=== PATIENT | female | born 1970 | race African-American/Black ===

== ENCOUNTER 2020-06-01 02:40 | Inpatient (IN) | payer MEDICAID ==
[~2020-06-01] VITALS: Ht 172.7 cm; Wt 107.5 kg
[2020-06-01] MEDS ORDERED: MORPHINE SULFATE 4 MG/ML CPJ (NOT FOR IM USE) IV STA (02:53)
[2020-06-01] MEDS ORDERED: ONDANSETRON HCL 4MG/2ML INJ IV STA (02:53)
[2020-06-01] MEDS ORDERED: SODIUM CHLORIDE 0.9% 1,000 ML IV ONE (03:00)
[2020-06-01 03:25] LABS: HEMATOCRIT. 41.6 % (36.0-48.0); HEMOGLOBIN. 13.8 g/dL (12.0-16.0); MEAN CORPUSCULAR HEMOGLOBIN 30.4 pg (28.0-32.0); MEAN CORPUSCULAR VOLUME 91.3 fL (81.0-99.0); MEAN PLATELET VOLUME 9.6 fl (7.4-10.4); PLATELET 220 x1000/uL (130-400); RED BLOOD CELL COUNT 4.55 mill/uL (4.2-5.4); RED CELL DISTRIBUTION WIDTH 15.6 % (11.6-14.6)
[2020-06-01 03:31] LABS: CHLORIDE 104 mEq/L (98-107)
[2020-06-01 03:35] LABS: ETHANOL BLOOD < 10 mg/dL
[2020-06-01 03:42] LABS: HCG SCREEN NEGATIVE
[2020-06-01 03:45] LABS: INR 1.1
[2020-06-01] MEDS ORDERED: METRONIDAZOLE 500 MG PREMIX 100 ML IV ONE (04:30)
[2020-06-01] MEDS ORDERED: SODIUM CHLORIDE 0.9% 1000ML BAG (SEPSIS BOLUS) IV ONE (04:30)
[2020-06-01] MEDS ORDERED: LEVOFLOXACIN 500MG PREMIX 100 ML IV ONE (04:30)
[2020-06-01 05:06] LABS: PLATELET ESTIMATE NORMAL
[2020-06-01 08:00] VITALS: BP 147/92
[2020-06-01 09:10] VITALS: BP 147/92
[2020-06-01] MEDS ORDERED: PIPERACILLIN/TAZ 3.375G PREMIX 50 ML IV SCH (09:15)
[2020-06-01] MEDS ORDERED: LORAZEPAM 0.5MG TABLET PO PRN (09:15)
[2020-06-01] MEDS ORDERED: MELO-104 MT ×2 (11:10→11:56)
[2020-06-01] MEDS ORDERED: HYDR12.54 MT (11:11)
[2020-06-01] MEDS ORDERED: POTA8CAP20 MT (11:15)
[2020-06-01] MEDS ORDERED: ALBU6.7H9 INH (11:15)
[2020-06-01] MEDS ORDERED: FURO-152 MT (11:15)
[2020-06-01] MEDS ORDERED: ATEN1POW2 MC (11:15)
[2020-06-01] MEDS ORDERED: EMPA10TA MT (11:15)
[2020-06-01] MEDS ORDERED: CLON0.1T MT (11:15)
[2020-06-01] MEDS ORDERED: SUCR1TAB30 MT (11:25)
[2020-06-01] MEDS ORDERED: ATEN50TA PO (11:43)
[2020-06-01] MEDS ORDERED: HYDR200T80 PO (11:48)
[2020-06-01] MEDS ORDERED: ERTU5TAB PO (11:48)
[2020-06-01] MEDS ORDERED: POTA-9 MT (11:54)
[2020-06-01 12:00] VITALS: BP 152/90
[2020-06-01] MEDS ORDERED: KCL 20MEQ/100ML PREMIX 100 ML IV NR (12:00)
[2020-06-01] MEDS: AMLODIPINE 5MG TABLET PO SCH (12:10)
[2020-06-01] MEDS: HYDROCODONE/ACETAMINOPHEN 5/325MG TABLET PO PRN (13:30)
[2020-06-01 16:00] VITALS: BP 162/96
[2020-06-01] MEDS: ACETAMINOPHEN 325MG TABLET PO PRN (16:55)
[2020-06-01 20:00] VITALS: BP 162/87
[2020-06-01] MEDS: HYDROMORPHONE HCL/PF 2MG/ML CPJ IV PRN (20:25)
[2020-06-01 23:37] VITALS: BP 137/79
[2020-06-02 04:00] VITALS: BP 142/89
[2020-06-02] MEDS: HYDROMORPHONE HCL/PF 2MG/ML CPJ IV PRN (04:50)
[2020-06-02 08:00] VITALS: BP 138/81
[2020-06-02 08:18] LABS: HEMATOCRIT. 38.3 % (36.0-48.0); HEMOGLOBIN. 12.4 g/dL (12.0-16.0); MEAN CORPUSCULAR HEMOGLOBIN 29.9 pg (28.0-32.0); MEAN CORPUSCULAR VOLUME 92.2 fL (81.0-99.0); MEAN PLATELET VOLUME 10.2 fl (7.4-10.4); PLATELET 198 x1000/uL (130-400); RED BLOOD CELL COUNT 4.16 mill/uL (4.2-5.4); RED CELL DISTRIBUTION WIDTH 15.7 % (11.6-14.6)
[2020-06-02 08:24] LABS: CHLORIDE 104 mEq/L (98-107)
[2020-06-02] MEDS ORDERED: LEVOFLOXACIN 750MG PREMIX 150 ML IV SCH (09:00)
[2020-06-02] MEDS: DIATR MEGLU/DIATRIZOATE SOLN 30ML PO SCH ×2 (09:24→11:31)
[2020-06-02] MEDS: AMLODIPINE 5MG TABLET PO SCH (09:24)
[2020-06-02 12:00] VITALS: BP 141/90
[2020-06-02] MEDS: ONDANSETRON HCL 4MG/2ML INJ IV PRN (12:52)
[2020-06-02] MEDS ORDERED: IOHEXOL-300 100 ML BOTTLE ONE (13:35)
[2020-06-02] MEDS ORDERED: ATENOLOL 50 MG TABLET PO SCH (13:45)
[2020-06-02] MEDS: HYDROCODONE/ACETAMINOPHEN 5/325MG TABLET PO PRN (13:46)
[2020-06-02] MEDS ORDERED: SODIUM CHLORIDE 0.9% 1,000 ML IV SCH (14:00)
[2020-06-02] MEDS: SODIUM CHLORIDE 0.9% 1,000 ML IV SCH ×2 (14:14→23:45)
[2020-06-02 14:34] LABS: PLATELET ESTIMATE NORMAL
[2020-06-02] MEDS ORDERED: KCL 20MEQ/100ML PREMIX 100 ML IV SCH (15:00)
[2020-06-02 16:00] VITALS: BP 141/94
[2020-06-02] MEDS: METRONIDAZOLE 500 MG PREMIX 100 ML IV SCH ×2 (16:15→22:00)
[2020-06-02] MEDS: HYDROXYCHLOROQUINE SULFATE 200MG TABLET PO SCH (16:19)
[2020-06-02] MEDS ORDERED: LIDOCAINE HCL 1% 20ML VIAL (Pyxis) INJ ONE (18:01)
[2020-06-02] MEDS ORDERED: BUPIVACAINE HCL/PF 0.5% (5MG/ML) 10ML ONE (18:03)
[2020-06-02] MEDS ORDERED: BACITRACIN 50,000 UNITS/VIAL ONE (18:04)
[2020-06-02] MEDS ORDERED: ROCURONIUM BROMIDE 10MG/ML VIAL 5ML IV ONE (18:26)
[2020-06-02] MEDS ORDERED: PROPOFOL 200MG/20ML VIAL IV ONE (18:26)
[2020-06-02] MEDS ORDERED: DEXAMETHASONE 4MG/ML 1ML VIAL ONE (18:27)
[2020-06-02] MEDS ORDERED: METOPROLOL TARTRATE 5MG/5ML VIAL IV ONE (18:41)
[2020-06-02] MEDS ORDERED: HYDROMORPHONE HCL/PF 2MG/ML (OR) ONE ×2 (18:45→22:25)
[2020-06-02] MEDS ORDERED: KCL 20MEQ/100ML PREMIX 100 ML IV ONE (18:48)
[2020-06-02] MEDS ORDERED: POTASSIUM CHLORIDE 40MEQ/20ML INJ IV ONE (18:51)
[2020-06-02] MEDS ORDERED: MAGNESIUM SULFATE 5GM/10ML VIAL IV ONE (18:51)
[2020-06-02] MEDS ORDERED: LABETALOL 5MG/ML SYR 20 MG/4 ML SYRINGE IV PRN (19:45)
[2020-06-02] MEDS ORDERED: HYDROMORPHONE HCL/PF 2MG/ML CPJ IV PRN (19:45)
[2020-06-02] MEDS ORDERED: ONDANSETRON HCL 4MG/2ML INJ IV PRN (19:45)
[2020-06-02] MEDS ORDERED: MEPERIDINE HCL/PF 25MG/ML CPJ IV PRN (19:45)
[2020-06-02] MEDS ORDERED: ALBUMIN HUMAN 12.5GM/50ML (25%) IV ONE (20:56)
[2020-06-02] MEDS ORDERED: MIDAZOLAM HCL 2 MG/2 ML VIAL ONE (22:25)
[2020-06-02] MEDS ORDERED: SKIN ADHESIVE 0.7 GM EA TOP ONE (22:56)
[2020-06-03] VITALS (42 sets, daily range): BP systolic 99–139; BP diastolic 63–88
[2020-06-03] MEDS: PROPOFOL 10MG/ML 100ML 100 ML IV PRN ×6 (01:01→23:30)
[2020-06-03 05:36] LABS: CHLORIDE 111 mEq/L (98-107)
[2020-06-03] MEDS: METRONIDAZOLE 500 MG PREMIX 100 ML IV SCH ×3 (05:51→21:32)
[2020-06-03] MEDS: IPRATROPIUM/ALBUTEROL 0.5-3(2.5)MG/3ML NEB HHN PRN ×2 (07:49→15:32)
[2020-06-03] MEDS: AMLODIPINE 5MG TABLET PO SCH (08:16)
[2020-06-03] MEDS: HYDROXYCHLOROQUINE SULFATE 200MG TABLET PO SCH ×2 (08:17→16:33)
[2020-06-03] MEDS: LEVOFLOXACIN 750MG PREMIX 150 ML IV SCH (08:40)
[2020-06-03 09:42] LABS: BG BASE EXCESS -8.6 mmol/L (-2.0-2.0); BG CARBOXYHEMOGLOBIN 0.2 % (0.5-1.5); BG DEOXYHEMOGLOBIN 1.5 % (0.0-5.0); BG FRACTION INSPIRED OXYGEN 70; BG HCO3 ACT 17.9 mmol/L (22.0-26.0); BG METHEMOGLOBIN 0.4 % (0.0-1.5); BG OXYGEN SATURATION 98.5 % (92.0-98.5); BG OXYHEMOGLOBIN 97.9 % (94.0-97.0); BG PCO2 40.6 mmHg (35.0-45.0); BG PH 7.263 (7.350-7.450); BG PO2 141.6 mmHg (75.0-100.0); BG SAMPLE SITE RIGHT RADIAL; BG TOTAL HEMOGLOBIN 12.6 g/dL (12.0-18.0); BG VENT MODE VENT - AC
[2020-06-03] MEDS ORDERED: SODIUM BICARBONATE 8.4% 1 MEQ/ML 50ML SYR IV NR ×2 (10:00→15:15)
[2020-06-03] MEDS: SODIUM CHLORIDE 0.9% 1,000 ML IV SCH (10:09)
[2020-06-03] MEDS: PANTOPRAZOLE SODIUM 40 MG/VIAL IV SCH (10:17)
[2020-06-03] MEDS: HYDROMORPHONE HCL/PF 2MG/ML CPJ IV PRN ×2 (10:18→15:44)
[2020-06-03] MEDS ORDERED: HYDROMORPHONE HCL/PF 2MG/ML CPJ IV PRN (10:30)
[2020-06-03 12:04] LABS: HEMATOCRIT. 36.2 % (36.0-48.0); HEMOGLOBIN. 11.6 g/dL (12.0-16.0); MEAN CORPUSCULAR HEMOGLOBIN 29.6 pg (28.0-32.0); MEAN CORPUSCULAR VOLUME 92.3 fL (81.0-99.0); MEAN PLATELET VOLUME 9.9 fl (7.4-10.4); PLATELET 214 x1000/uL (130-400); RED BLOOD CELL COUNT 3.92 mill/uL (4.2-5.4)
[2020-06-03 13:05] LABS: PHOSPHORUS 5.1 mg/dL (2.5-4.9)
[2020-06-03 13:29] LABS: PLATELET ESTIMATE NORMAL
[2020-06-03] MEDS ORDERED: SODIUM CHLORIDE 0.9% 1,000 ML IV SCH (14:00)
[2020-06-03 14:06] LABS: BG BASE EXCESS -6.7 mmol/L (-2.0-2.0); BG CARBOXYHEMOGLOBIN 0.2 % (0.5-1.5); BG DEOXYHEMOGLOBIN 1.4 % (0.0-5.0); BG FRACTION INSPIRED OXYGEN 60; BG HCO3 ACT 19.1 mmol/L (22.0-26.0); BG METHEMOGLOBIN 0.3 % (0.0-1.5); BG OXYGEN SATURATION 98.6 % (92.0-98.5); BG OXYHEMOGLOBIN 98.1 % (94.0-97.0); BG PCO2 39.2 mmHg (35.0-45.0); BG PH 7.305 (7.350-7.450); BG PO2 137.5 mmHg (75.0-100.0); BG SAMPLE SITE RIGHT RADIAL; BG TOTAL HEMOGLOBIN 12.5 g/dL (12.0-18.0); BG VENT MODE VENT - AC
[2020-06-03 14:33] LABS: CLARITY URINE CLOUDY (CLEAR); COLOR URINE DARK YELLOW (YELLOW); KETONES URINE 2+ (NEGATIVE); LEUKOCYTE ESTERASE URINE TRACE (NEGATIVE); NITRITE URINE NEGATIVE (NEGATIVE); OCCULT BLOOD URINE 2+ (NEGATIVE); PH URINE 5.5 (4.5-8.0); PROTEIN URINE 1+ (NEGATIVE); SPECIFIC GRAVITY URINE 1.031 (1.005-1.030)
[2020-06-03] MEDS ORDERED: DEXTROSE 50% WATER 50ML SYRINGE IV PRN (15:45)
[2020-06-03] MEDS ORDERED: [UNRECOGNIZED DRUG - NUTRITION] XX SCH (15:45)
[2020-06-03] MEDS: DEXT 5%/0.45% NACL 1000ML 1,000 ML IV SCH ×2 (16:33→23:12)
[2020-06-03] MEDS: INSULIN LISPRO 100 UNITS/ML SUBCUT SCH ×2 (17:09→23:13)
[2020-06-03] MEDS: BLOOD SUGAR DIAGNOSTIC STRIP TEST SCH ×2 (17:09→23:12)
[2020-06-03] MEDS ORDERED: BLOOD SUGAR DIAGNOSTIC STRIP TEST SCH (17:50)
[2020-06-03] MEDS ORDERED: INSULIN LISPRO 100 UNITS/ML SUBCUT SCH (18:20)
[2020-06-04] VITALS (48 sets, daily range): BP systolic 114–163; BP diastolic 66–96
[2020-06-04] MEDS: PROPOFOL 10MG/ML 100ML 100 ML IV PRN ×2 (04:21→07:25)
[2020-06-04] MEDS: HYDROMORPHONE HCL/PF 2MG/ML CPJ IV PRN ×4 (04:25→22:37)
[2020-06-04] MEDS: BLOOD SUGAR DIAGNOSTIC STRIP TEST SCH ×3 (05:14→18:51)
[2020-06-04] MEDS: INSULIN LISPRO 100 UNITS/ML SUBCUT SCH ×3 (05:14→18:00)
[2020-06-04] MEDS: METRONIDAZOLE 500 MG PREMIX 100 ML IV SCH ×3 (05:14→21:06)
[2020-06-04 05:36] LABS: CHLORIDE 111 mEq/L (98-107)
[2020-06-04 05:37] LABS: HEMATOCRIT. 32.1 % (36.0-48.0); HEMOGLOBIN. 10.6 g/dL (12.0-16.0); MEAN CORPUSCULAR HEMOGLOBIN 30.2 pg (28.0-32.0); MEAN CORPUSCULAR VOLUME 91.2 fL (81.0-99.0); MEAN PLATELET VOLUME 9.8 fl (7.4-10.4); PLATELET 192 x1000/uL (130-400); RED BLOOD CELL COUNT 3.52 mill/uL (4.2-5.4); RED CELL DISTRIBUTION WIDTH 16.1 % (11.6-14.6)
[2020-06-04] MEDS: DEXT 5%/0.45% NACL 1000ML 1,000 ML IV SCH ×2 (07:24→18:00)
[2020-06-04] MEDS: AMLODIPINE 5MG TABLET PO SCH (08:39)
[2020-06-04] MEDS: HYDROXYCHLOROQUINE SULFATE 200MG TABLET PO SCH ×2 (08:39→17:00)
[2020-06-04] MEDS: PANTOPRAZOLE SODIUM 40 MG/VIAL IV SCH (08:41)
[2020-06-04] MEDS: LEVOFLOXACIN 750MG PREMIX 150 ML IV SCH (08:41)
[2020-06-04] MEDS ORDERED: LORAZEPAM 2MG/ML CPJ IV NR ×2 (09:00)
[2020-06-04 09:14] LABS: BG BASE EXCESS 1.9 mmol/L (-2.0-2.0); BG CARBOXYHEMOGLOBIN 0.1 % (0.5-1.5); BG DEOXYHEMOGLOBIN 1.7 % (0.0-5.0); BG FRACTION INSPIRED OXYGEN 35; BG HCO3 ACT 25.7 mmol/L (22.0-26.0); BG METHEMOGLOBIN 0.3 % (0.0-1.5); BG OXYGEN SATURATION 98.3 % (92.0-98.5); BG OXYHEMOGLOBIN 97.9 % (94.0-97.0); BG PCO2 37.4 mmHg (35.0-45.0); BG PH 7.455 (7.350-7.450); BG PO2 122.2 mmHg (75.0-100.0); BG SAMPLE SITE RIGHT RADIAL; BG TOTAL HEMOGLOBIN 11.1 g/dL (12.0-18.0); BG VENT MODE VENT - AC
[2020-06-04 10:38] LABS: BG BASE EXCESS 1.2 mmol/L (-2.0-2.0); BG CARBOXYHEMOGLOBIN 0.1 % (0.5-1.5); BG DEOXYHEMOGLOBIN 4.3 % (0.0-5.0); BG FRACTION INSPIRED OXYGEN 35; BG HCO3 ACT 26.6 mmol/L (22.0-26.0); BG METHEMOGLOBIN 0.2 % (0.0-1.5); BG OXYGEN SATURATION 95.7 % (92.0-98.5); BG OXYHEMOGLOBIN 95.4 % (94.0-97.0); BG PCO2 45.5 mmHg (35.0-45.0); BG PH 7.385 (7.350-7.450); BG PO2 81.7 mmHg (75.0-100.0); BG SAMPLE SITE RIGHT RADIAL; BG TOTAL HEMOGLOBIN 11.3 g/dL (12.0-18.0); BG VENT MODE VENT - CPAP
[2020-06-04 11:12] LABS: NUCLEATED RED BLOOD CELLS 1 /100 WBC; PLATELET ESTIMATE NORMAL
[2020-06-04] MEDS: IPRATROPIUM/ALBUTEROL 0.5-3(2.5)MG/3ML NEB HHN PRN (11:13)
[2020-06-04] MEDS ORDERED: IPRATROPIUM/ALBUTEROL 0.5-3(2.5)MG/3ML NEB HHN SCH (13:30)
[2020-06-04] MEDS ORDERED: ACETYLCYSTEINE 200MG/ML 20% VIAL 4ML INH SCH ×2 (14:00→22:00)
[2020-06-04] MEDS ORDERED: DEXT 5%/0.45% NACL 1000ML 1,000 ML IV SCH (15:51)
[2020-06-04] MEDS: ONDANSETRON HCL 4MG/2ML INJ IV PRN ×2 (16:42→22:38)
[2020-06-04] MEDS: TOTAL PARENTERAL NUTRITION 1,400 ML IV SCH (18:00)
[2020-06-04] MEDS: IPRATROPIUM/ALBUTEROL 0.5-3(2.5)MG/3ML NEB HHN SCH ×2 (19:54→23:56)
[2020-06-04] MEDS: FAT EMULSIONS 500 ML IV SCH (21:04)
[2020-06-04] MEDS: ENOXAPARIN 30MG/0.3ML SYR SUBCUT SCH (21:05)
[2020-06-05] VITALS (23 sets, daily range): BP systolic 131–168; BP diastolic 81–104
[2020-06-05] MEDS: BLOOD SUGAR DIAGNOSTIC STRIP TEST SCH ×4 (00:13→17:11)
[2020-06-05] MEDS: HYDROMORPHONE HCL/PF 2MG/ML CPJ IV PRN ×6 (02:34→23:30)
[2020-06-05] MEDS: DILTIAZEM HCL 5MG/ML 5ML VIAL IV PRN ×3 (03:39→17:46)
[2020-06-05] MEDS: METRONIDAZOLE 500 MG PREMIX 100 ML IV SCH ×3 (05:16→21:48)
[2020-06-05] MEDS: DEXT 5%/0.45% NACL 1000ML 1,000 ML IV SCH ×2 (05:16→15:54)
[2020-06-05 05:33] LABS: HEMATOCRIT. 32.4 % (36.0-48.0); HEMOGLOBIN. 10.9 g/dL (12.0-16.0); MEAN CORPUSCULAR HEMOGLOBIN 30.6 pg (28.0-32.0); MEAN CORPUSCULAR VOLUME 91.3 fL (81.0-99.0); MEAN PLATELET VOLUME 9.9 fl (7.4-10.4); PLATELET 208 x1000/uL (130-400); RED BLOOD CELL COUNT 3.55 mill/uL (4.2-5.4); RED CELL DISTRIBUTION WIDTH 16.3 % (11.6-14.6)
[2020-06-05 05:56] LABS: CHLORIDE 108 mEq/L (98-107)
[2020-06-05] MEDS: INSULIN LISPRO 100 UNITS/ML SUBCUT SCH ×4 (06:00→17:11)
[2020-06-05 07:09] LABS: PLATELET ESTIMATE NORMAL
[2020-06-05] MEDS: IPRATROPIUM/ALBUTEROL 0.5-3(2.5)MG/3ML NEB HHN SCH (08:43)
[2020-06-05] MEDS: AMLODIPINE 5MG TABLET PO SCH ×2 (09:00→09:31)
[2020-06-05] MEDS: HYDROXYCHLOROQUINE SULFATE 200MG TABLET PO SCH ×3 (09:00→16:39)
[2020-06-05] MEDS: LEVOFLOXACIN 750MG PREMIX 150 ML IV SCH (09:31)
[2020-06-05] MEDS: PANTOPRAZOLE SODIUM 40 MG/VIAL IV SCH (09:31)
[2020-06-05] MEDS: ENOXAPARIN 30MG/0.3ML SYR SUBCUT SCH ×2 (09:32→20:16)
[2020-06-05] MEDS ORDERED: POTASSIUM CHLORIDE INJ 40 MEQ in DEXT 5% WATER 250 ML IV NR (10:30)
[2020-06-05] MEDS: IPRATROPIUM BROMIDE (0.02%) 0.5MG/2.5ML NEB HHN SCH ×2 (14:13→20:14)
[2020-06-05] MEDS: TOTAL PARENTERAL NUTRITION 1,400 ML IV SCH (17:39)
[2020-06-05] MEDS: DILTIAZEM HCL 60MG TABLET PO SCH ×2 (17:44→23:57)
[2020-06-05] MEDS: GUAIFENESIN 600MG ER TABLET PO SCH (20:21)
[2020-06-05] MEDS ORDERED: TOTAL PARENTERAL NUTRITION 1,400 ML IV SCH (21:00)
[2020-06-05] MEDS: CLONIDINE 0.1MG TABLET PO PRN (22:07)
[2020-06-06] VITALS (10 sets, daily range): BP systolic 144–174; BP diastolic 85–111
[2020-06-06] MEDS: IPRATROPIUM BROMIDE (0.02%) 0.5MG/2.5ML NEB HHN SCH ×5 (01:34→21:55)
[2020-06-06] MEDS: HYDROMORPHONE HCL/PF 2MG/ML CPJ IV PRN ×8 (02:43→22:55)
[2020-06-06] MEDS: METRONIDAZOLE 500 MG PREMIX 100 ML IV SCH ×3 (05:50→23:50)
[2020-06-06] MEDS: DILTIAZEM HCL 60MG TABLET PO SCH (05:50)
[2020-06-06] MEDS: HYDRALAZINE HCL 25MG TABLET PO SCH ×3 (05:50→21:00)
[2020-06-06] MEDS: INSULIN LISPRO 100 UNITS/ML SUBCUT SCH ×4 (05:51→17:44)
[2020-06-06] MEDS: BLOOD SUGAR DIAGNOSTIC STRIP TEST SCH ×4 (05:51→17:39)
[2020-06-06 06:55] LABS: HEMATOCRIT. 34.1 % (36.0-48.0); HEMOGLOBIN. 11.2 g/dL (12.0-16.0); MEAN CORPUSCULAR HEMOGLOBIN 29.8 pg (28.0-32.0); MEAN CORPUSCULAR VOLUME 90.6 fL (81.0-99.0); PLATELET 229 x1000/uL (130-400); RED BLOOD CELL COUNT 3.76 mill/uL (4.2-5.4); RED CELL DISTRIBUTION WIDTH 15.8 % (11.6-14.6)
[2020-06-06 07:03] LABS: CHLORIDE 101 mEq/L (98-107)
[2020-06-06 07:13] LABS: PHOSPHORUS 2.6 mg/dL (2.5-4.9)
[2020-06-06] MEDS: HYDROXYCHLOROQUINE SULFATE 200MG TABLET PO SCH ×3 (09:00→17:39)
[2020-06-06] MEDS: GUAIFENESIN 600MG ER TABLET PO SCH ×2 (09:00→21:00)
[2020-06-06] MEDS: ENOXAPARIN 30MG/0.3ML SYR SUBCUT SCH ×3 (09:24→23:50)
[2020-06-06] MEDS: DEXT 5%/0.45% NACL 1000ML 1,000 ML IV SCH (09:27)
[2020-06-06] MEDS: FAMOTIDINE 20MG/2ML VIAL IV SCH ×2 (09:27→22:55)
[2020-06-06] MEDS: LEVOFLOXACIN 750MG PREMIX 150 ML IV SCH (10:14)
[2020-06-06] MEDS: DILTIAZEM HCL 90MG TABLET PO SCH ×3 (12:00→17:55)
[2020-06-06] MEDS: MORPHINE SULFATE 2 MG/ML CPJ (NOT FOR IM USE) IV PRN ×2 (12:02→17:54)
[2020-06-06] MEDS: ACETAMINOPHEN 325MG TABLET PO PRN (14:11)
[2020-06-06 15:53] LABS: HEMATOCRIT. 35.8 % (36.0-48.0); HEMOGLOBIN. 11.9 g/dL (12.0-16.0); MEAN CORPUSCULAR HEMOGLOBIN 30.6 pg (28.0-32.0); MEAN CORPUSCULAR VOLUME 91.8 fL (81.0-99.0); MEAN PLATELET VOLUME 9.8 fl (7.4-10.4); PLATELET 203 x1000/uL (130-400)
[2020-06-06 15:59] LABS: CHLORIDE 101 mEq/L (98-107)
[2020-06-06 17:21] LABS: PLATELET ESTIMATE NORMAL
[2020-06-06] MEDS ORDERED: BACITRACIN 50,000 UNITS/VIAL ONE (17:23)
[2020-06-06 17:28] LABS: PLATELET ESTIMATE NORMAL
[2020-06-06] MEDS ORDERED: FENTANYL CITRATE/PF 50MCG/ML 2ML VIAL ONE ×2 (18:14→19:59)
[2020-06-06] MEDS ORDERED: ROCURONIUM BROMIDE 10MG/ML VIAL 5ML IV ONE (18:15)
[2020-06-06] MEDS ORDERED: GLYCOPYRROLATE 0.2 MG/ML 2ML VIAL ONE (18:15)
[2020-06-06] MEDS ORDERED: NEOSTIGMINE METHYLSULFATE 1MG/ML 10 ML VIAL ONE (18:15)
[2020-06-06] MEDS ORDERED: MIDAZOLAM HCL 2 MG/2 ML VIAL ONE (18:15)
[2020-06-06] MEDS ORDERED: PROPOFOL 200MG/20ML VIAL IV ONE (18:15)
[2020-06-06] MEDS ORDERED: CLINDAMYCIN 900 MG PREMIX 50 ML IV ONE (18:16)
[2020-06-06] MEDS ORDERED: LIDOCAINE HCL 1% 20ML VIAL (Pyxis) INJ ONE (18:17)
[2020-06-06] MEDS ORDERED: DEXAMETHASONE 4MG/ML 1ML VIAL ONE (18:26)
[2020-06-06] MEDS ORDERED: ONDANSETRON HCL 4MG/2ML INJ ONE (18:26)
[2020-06-06] MEDS ORDERED: NALOXONE HCL 0.4 MG/ML 1ML VIAL ONE (20:12)
[2020-06-06] MEDS ORDERED: SODIUM CHLORIDE 0.9% 10ML VIAL ONE (20:12)
[2020-06-06] MEDS ORDERED: MEPERIDINE HCL/PF 25MG/ML CPJ IV PRN (20:15)
[2020-06-06] MEDS ORDERED: ONDANSETRON HCL 4MG/2ML INJ IV PRN (20:15)
[2020-06-06] MEDS ORDERED: METOCLOPRAMIDE HCL 10MG/2ML VIAL IV NR (20:15)
[2020-06-06] MEDS ORDERED: TOTAL PARENTERAL NUTRITION 1,400 ML IV SCH (21:00)
[2020-06-07] VITALS (14 sets, daily range): BP systolic 110–171; BP diastolic 73–103
[2020-06-07] MEDS: DEXT 5%/0.45% NACL 1000ML 1,000 ML IV SCH ×4 (00:56→21:45)
[2020-06-07] MEDS: DILTIAZEM HCL 90MG TABLET PO SCH ×4 (00:56→18:25)
[2020-06-07] MEDS: INSULIN LISPRO 100 UNITS/ML SUBCUT SCH ×4 (00:57→18:37)
[2020-06-07] MEDS: BLOOD SUGAR DIAGNOSTIC STRIP TEST SCH ×4 (00:59→18:26)
[2020-06-07] MEDS: HYDROMORPHONE HCL/PF 2MG/ML CPJ IV PRN ×4 (06:06→19:36)
[2020-06-07] MEDS: METRONIDAZOLE 500 MG PREMIX 100 ML IV SCH ×3 (06:15→22:05)
[2020-06-07] MEDS: MORPHINE SULFATE 2 MG/ML CPJ (NOT FOR IM USE) IV PRN ×4 (08:31→22:47)
[2020-06-07] MEDS: HYDRALAZINE HCL 25MG TABLET PO SCH ×2 (08:33→21:46)
[2020-06-07] MEDS: HYDROXYCHLOROQUINE SULFATE 200MG TABLET PO SCH ×2 (08:33→18:26)
[2020-06-07] MEDS: FAMOTIDINE 20MG/2ML VIAL IV SCH ×2 (08:33→21:46)
[2020-06-07] MEDS: GUAIFENESIN 600MG ER TABLET PO SCH ×3 (08:34→21:46)
[2020-06-07] MEDS: ENOXAPARIN 30MG/0.3ML SYR SUBCUT SCH ×2 (08:34→21:48)
[2020-06-07] MEDS: LEVOFLOXACIN 750MG PREMIX 150 ML IV SCH (09:45)
[2020-06-07 10:51] LABS: HEMATOCRIT 31.7 % (36.0-48.0); HEMOGLOBIN 10.6 g/dL (12.0-16.0); MEAN CORPUSCULAR VOLUME 89.9 fL (81.0-99.0); PLATELET 251 x1000/uL (130-400); RED BLOOD CELL COUNT 3.52 mill/uL (4.2-5.4); RED CELL DISTRIBUTION WIDTH 15.6 % (11.6-14.6)
[2020-06-07] MEDS: IPRATROPIUM BROMIDE (0.02%) 0.5MG/2.5ML NEB HHN SCH ×3 (10:54→20:00)
[2020-06-07 10:56] LABS: CHLORIDE 104 mEq/L (98-107)
[2020-06-07] MEDS ORDERED: [UNRECOGNIZED DRUG - NUTRITION] XX SCH (21:00)
[2020-06-07] MEDS ORDERED: TOTAL PARENTERAL NUTRITION 1,200 ML IV SCH (21:00)
[2020-06-07] MEDS: CLONIDINE 0.1MG TABLET PO PRN (22:42)
[2020-06-08] VITALS (13 sets, daily range): BP systolic 140–185; BP diastolic 82–105
[2020-06-08] MEDS: DILTIAZEM HCL 90MG TABLET PO SCH ×4 (00:43→18:15)
[2020-06-08] MEDS: BLOOD SUGAR DIAGNOSTIC STRIP TEST SCH ×4 (00:47→18:08)
[2020-06-08] MEDS: INSULIN LISPRO 100 UNITS/ML SUBCUT SCH ×4 (00:53→18:00)
[2020-06-08] MEDS: HYDROMORPHONE HCL/PF 2MG/ML CPJ IV PRN ×3 (02:04→11:07)
[2020-06-08] MEDS: IPRATROPIUM BROMIDE (0.02%) 0.5MG/2.5ML NEB HHN SCH ×4 (02:33→21:10)
[2020-06-08] MEDS: MORPHINE SULFATE 2 MG/ML CPJ (NOT FOR IM USE) IV PRN ×5 (04:45→23:53)
[2020-06-08] MEDS: METRONIDAZOLE 500 MG PREMIX 100 ML IV SCH ×3 (06:12→22:43)
[2020-06-08 07:24] LABS: CHLORIDE 101 mEq/L (98-107)
[2020-06-08 08:44] LABS: HEMATOCRIT. 28.5 % (36.0-48.0); HEMOGLOBIN. 9.4 g/dL (12.0-16.0); MEAN CORPUSCULAR HEMOGLOBIN 29.8 pg (28.0-32.0); MEAN CORPUSCULAR VOLUME 90.2 fL (81.0-99.0); MEAN PLATELET VOLUME 10.1 fl (7.4-10.4); PLATELET 297 x1000/uL (130-400); RED BLOOD CELL COUNT 3.16 mill/uL (4.2-5.4)
[2020-06-08] MEDS: DEXT 5%/0.45% NACL 1000ML 1,000 ML IV SCH ×2 (09:18→22:44)
[2020-06-08] MEDS: FAMOTIDINE 20MG/2ML VIAL IV SCH ×2 (09:18→21:31)
[2020-06-08] MEDS: HYDRALAZINE HCL 25MG TABLET PO SCH ×2 (09:19→21:24)
[2020-06-08] MEDS: GUAIFENESIN 600MG ER TABLET PO SCH ×2 (09:19→21:24)
[2020-06-08] MEDS: ENOXAPARIN 30MG/0.3ML SYR SUBCUT SCH ×2 (09:19→21:35)
[2020-06-08] MEDS: HYDROXYCHLOROQUINE SULFATE 200MG TABLET PO SCH ×2 (09:19→18:14)
[2020-06-08] MEDS: LEVOFLOXACIN 750MG PREMIX 150 ML IV SCH (09:20)
[2020-06-08] MEDS: ENALAPRIL 1.25MG/ML VIAL 1ML IV PRN ×2 (10:56→18:38)
[2020-06-08 14:12] LABS: PLATELET ESTIMATE NORMAL
[2020-06-08] MEDS: METOPROLOL TARTRATE 25MG TABLET PO SCH (21:24)
[2020-06-08] MEDS: FAT EMULSIONS 500 ML IV SCH (21:37)
[2020-06-08] MEDS: TOTAL PARENTERAL NUTRITION 1,500 ML IV SCH (21:42)
[2020-06-09] VITALS (12 sets, daily range): BP systolic 114–166; BP diastolic 60–97
[2020-06-09] MEDS: DILTIAZEM HCL 90MG TABLET PO SCH ×4 (01:02→17:02)
[2020-06-09] MEDS: BLOOD SUGAR DIAGNOSTIC STRIP TEST SCH ×4 (01:06→17:57)
[2020-06-09] MEDS: INSULIN LISPRO 100 UNITS/ML SUBCUT SCH ×4 (01:14→17:57)
[2020-06-09] MEDS: MORPHINE SULFATE 2 MG/ML CPJ (NOT FOR IM USE) IV PRN ×9 (02:19→23:10)
[2020-06-09] MEDS: IPRATROPIUM BROMIDE (0.02%) 0.5MG/2.5ML NEB HHN SCH ×4 (02:34→21:22)
[2020-06-09] MEDS: METRONIDAZOLE 500 MG PREMIX 100 ML IV SCH ×3 (05:52→21:33)
[2020-06-09 06:37] LABS: HEMOGLOBIN. 9.4 g/dL (12.0-16.0); MEAN CORPUSCULAR HEMOGLOBIN 29.1 pg (28.0-32.0); MEAN CORPUSCULAR VOLUME 89.2 fL (81.0-99.0); PLATELET 388 x1000/uL (130-400); RED BLOOD CELL COUNT 3.25 mill/uL (4.2-5.4); RED CELL DISTRIBUTION WIDTH 15.9 % (11.6-14.6)
[2020-06-09] MEDS: HYDROXYCHLOROQUINE SULFATE 200MG TABLET PO SCH ×2 (08:33→17:01)
[2020-06-09] MEDS: FAMOTIDINE 20MG/2ML VIAL IV SCH ×2 (08:33→21:32)
[2020-06-09] MEDS: GUAIFENESIN 600MG ER TABLET PO SCH ×2 (08:33→21:33)
[2020-06-09] MEDS: ENOXAPARIN 30MG/0.3ML SYR SUBCUT SCH ×2 (08:33→21:32)
[2020-06-09] MEDS: METOPROLOL TARTRATE 25MG TABLET PO SCH (08:33)
[2020-06-09] MEDS: HYDRALAZINE HCL 25MG TABLET PO SCH ×2 (08:34→21:46)
[2020-06-09 08:57] LABS: CHLORIDE 101 mEq/L (98-107)
[2020-06-09] MEDS: LEVOFLOXACIN 750MG PREMIX 150 ML IV SCH (09:34)
[2020-06-09 12:52] LABS: PLATELET ESTIMATE NORMAL
[2020-06-09] MEDS: METOCLOPRAMIDE HCL 10MG/2ML VIAL IV SCH (18:27)
[2020-06-09] MEDS: MICAFUNGIN 150 MG in SODIUM CHLORIDE 0.9% 100 ML IV SCH (18:27)
[2020-06-09] MEDS: METOPROLOL TARTRATE 50MG TABLET PO SCH (21:46)
[2020-06-10] VITALS (12 sets, daily range): BP systolic 129–159; BP diastolic 72–96
[2020-06-10] MEDS: TOTAL PARENTERAL NUTRITION 1,500 ML IV SCH (00:25)
[2020-06-10] MEDS: MORPHINE SULFATE 2 MG/ML CPJ (NOT FOR IM USE) IV PRN ×7 (01:17→22:21)
[2020-06-10] MEDS: METOCLOPRAMIDE HCL 10MG/2ML VIAL IV SCH ×4 (01:17→17:21)
[2020-06-10] MEDS: DILTIAZEM HCL 90MG TABLET PO SCH ×3 (01:18→13:00)
[2020-06-10] MEDS: INSULIN LISPRO 100 UNITS/ML SUBCUT SCH ×4 (01:33→17:23)
[2020-06-10] MEDS: IPRATROPIUM BROMIDE (0.02%) 0.5MG/2.5ML NEB HHN SCH ×4 (01:45→21:09)
[2020-06-10] MEDS: BLOOD SUGAR DIAGNOSTIC STRIP TEST SCH ×4 (06:00→17:23)
[2020-06-10] MEDS: METRONIDAZOLE 500 MG PREMIX 100 ML IV SCH ×3 (06:34→21:56)
[2020-06-10 06:58] LABS: HEMATOCRIT. 30.5 % (36.0-48.0); HEMOGLOBIN. 10.1 g/dL (12.0-16.0); MEAN CORPUSCULAR HEMOGLOBIN 30.1 pg (28.0-32.0); MEAN CORPUSCULAR VOLUME 90.5 fL (81.0-99.0); MEAN PLATELET VOLUME 9.9 fl (7.4-10.4); PLATELET 457 x1000/uL (130-400); RED BLOOD CELL COUNT 3.37 mill/uL (4.2-5.4); RED CELL DISTRIBUTION WIDTH 15.9 % (11.6-14.6)
[2020-06-10 07:23] LABS: CHLORIDE 102 mEq/L (98-107)
[2020-06-10] MEDS: HYDROXYCHLOROQUINE SULFATE 200MG TABLET PO SCH ×2 (09:42→17:22)
[2020-06-10] MEDS: GUAIFENESIN 600MG ER TABLET PO SCH ×2 (09:42→21:55)
[2020-06-10] MEDS: LEVOFLOXACIN 750MG PREMIX 150 ML IV SCH (09:42)
[2020-06-10] MEDS: FAMOTIDINE 20MG/2ML VIAL IV SCH ×2 (09:43→21:54)
[2020-06-10] MEDS: METOPROLOL TARTRATE 50MG TABLET PO SCH ×2 (09:43→21:55)
[2020-06-10] MEDS: ENOXAPARIN 30MG/0.3ML SYR SUBCUT SCH ×2 (09:43→21:56)
[2020-06-10] MEDS: HYDRALAZINE HCL 25MG TABLET PO SCH ×2 (09:43→21:55)
[2020-06-10 11:46] LABS: PLATELET ESTIMATE INCREASED
[2020-06-10] MEDS: DILTIAZEM HCL 60MG TABLET PO SCH (17:21)
[2020-06-10] MEDS: MICAFUNGIN 150 MG in SODIUM CHLORIDE 0.9% 100 ML IV SCH (17:25)
[2020-06-10] MEDS: BISACODYL 10MG SUPP PR SCH (21:00)
[2020-06-11] VITALS (11 sets, daily range): BP systolic 122–157; BP diastolic 68–105
[2020-06-11] MEDS: INSULIN LISPRO 100 UNITS/ML SUBCUT SCH ×4 (00:53→17:25)
[2020-06-11] MEDS: TOTAL PARENTERAL NUTRITION 1,500 ML IV SCH ×2 (00:54→21:48)
[2020-06-11] MEDS: DILTIAZEM HCL 60MG TABLET PO SCH ×4 (00:55→17:22)
[2020-06-11] MEDS: METOCLOPRAMIDE HCL 10MG/2ML VIAL IV SCH ×4 (00:55→17:22)
[2020-06-11] MEDS: IPRATROPIUM BROMIDE (0.02%) 0.5MG/2.5ML NEB HHN SCH ×4 (01:11→20:38)
[2020-06-11] MEDS: MORPHINE SULFATE 2 MG/ML CPJ (NOT FOR IM USE) IV PRN ×6 (01:14→22:02)
[2020-06-11] MEDS: BLOOD SUGAR DIAGNOSTIC STRIP TEST SCH ×4 (06:00→17:54)
[2020-06-11 06:33] LABS: HEMATOCRIT. 29.8 % (36.0-48.0); HEMOGLOBIN. 9.9 g/dL (12.0-16.0); MEAN CORPUSCULAR VOLUME 90.2 fL (81.0-99.0); MEAN PLATELET VOLUME 9.2 fl (7.4-10.4); PLATELET 505 x1000/uL (130-400); RED CELL DISTRIBUTION WIDTH 15.7 % (11.6-14.6)
[2020-06-11 06:34] LABS: CHLORIDE 102 mEq/L (98-107)
[2020-06-11] MEDS: METRONIDAZOLE 500 MG PREMIX 100 ML IV SCH ×3 (06:34→22:14)
[2020-06-11] MEDS: LEVOFLOXACIN 750MG PREMIX 150 ML IV SCH (08:57)
[2020-06-11] MEDS: ENOXAPARIN 30MG/0.3ML SYR SUBCUT SCH ×2 (08:57→22:07)
[2020-06-11] MEDS: FAMOTIDINE 20MG/2ML VIAL IV SCH ×2 (08:57→22:02)
[2020-06-11] MEDS: GUAIFENESIN 600MG ER TABLET PO SCH ×2 (08:59→22:06)
[2020-06-11] MEDS: HYDROXYCHLOROQUINE SULFATE 200MG TABLET PO SCH ×2 (08:59→17:22)
[2020-06-11] MEDS: HYDRALAZINE HCL 25MG TABLET PO SCH ×2 (08:59→22:07)
[2020-06-11] MEDS: METOPROLOL TARTRATE 50MG TABLET PO SCH ×2 (08:59→22:07)
[2020-06-11] MEDS: BISACODYL 10MG SUPP PR SCH ×2 (09:00→22:27)
[2020-06-11 14:16] LABS: PLATELET ESTIMATE INCREASED
[2020-06-11] MEDS ORDERED: FUROSEMIDE 20MG/2ML VIAL IVP NR (16:45)
[2020-06-11] MEDS: MICAFUNGIN 150 MG in SODIUM CHLORIDE 0.9% 100 ML IV SCH (17:54)
[2020-06-11] MEDS: ACETAMINOPHEN 325MG TABLET PO PRN (23:30)
[2020-06-11] MEDS: FAT EMULSIONS 500 ML IV SCH (23:30)
[2020-06-12] VITALS (12 sets, daily range): BP systolic 125–164; BP diastolic 77–96
[2020-06-12] MEDS: MORPHINE SULFATE 2 MG/ML CPJ (NOT FOR IM USE) IV PRN ×4 (00:59→14:18)
[2020-06-12] MEDS: IPRATROPIUM BROMIDE (0.02%) 0.5MG/2.5ML NEB HHN SCH ×4 (01:28→21:01)
[2020-06-12] MEDS: METOCLOPRAMIDE HCL 10MG/2ML VIAL IV SCH ×4 (01:28→17:36)
[2020-06-12] MEDS: INSULIN LISPRO 100 UNITS/ML SUBCUT SCH ×4 (01:29→17:37)
[2020-06-12] MEDS: DILTIAZEM HCL 60MG TABLET PO SCH ×4 (01:31→17:36)
[2020-06-12] MEDS: BLOOD SUGAR DIAGNOSTIC STRIP TEST SCH ×4 (06:00→17:28)
[2020-06-12 06:34] LABS: HEMATOCRIT. 31.5 % (36.0-48.0); HEMOGLOBIN. 10.5 g/dL (12.0-16.0); MEAN CORPUSCULAR HEMOGLOBIN 29.9 pg (28.0-32.0); MEAN CORPUSCULAR VOLUME 90.1 fL (81.0-99.0); MEAN PLATELET VOLUME 9.7 fl (7.4-10.4); PLATELET 592 x1000/uL (130-400); RED CELL DISTRIBUTION WIDTH 15.7 % (11.6-14.6)
[2020-06-12 06:38] LABS: CHLORIDE 100 mEq/L (98-107)
[2020-06-12] MEDS: BISACODYL 10MG SUPP PR SCH ×2 (09:00→21:00)
[2020-06-12] MEDS: HYDROXYCHLOROQUINE SULFATE 200MG TABLET PO SCH ×2 (09:27→16:56)
[2020-06-12] MEDS: GUAIFENESIN 600MG ER TABLET PO SCH ×2 (09:27→20:17)
[2020-06-12] MEDS: METOPROLOL TARTRATE 50MG TABLET PO SCH ×2 (09:27→21:24)
[2020-06-12] MEDS: FAMOTIDINE 20MG/2ML VIAL IV SCH ×2 (09:27→20:24)
[2020-06-12] MEDS: HYDRALAZINE HCL 25MG TABLET PO SCH ×2 (09:27→20:25)
[2020-06-12] MEDS: ENOXAPARIN 30MG/0.3ML SYR SUBCUT SCH ×2 (09:28→20:18)
[2020-06-12] MEDS ORDERED: NALOXONE HCL 0.4 MG/ML 1ML VIAL IV PRN (09:30)
[2020-06-12] MEDS: HYDROCODONE/ACETAMINOPHEN 5/325MG TABLET PO PRN ×2 (12:06→16:58)
[2020-06-12] MEDS ORDERED: FUROSEMIDE 20MG/2ML VIAL IVP NR (13:15)
[2020-06-12] MEDS: GABAPENTIN 100MG CAPSULE PO SCH ×2 (14:17→21:27)
[2020-06-12 16:10] LABS: PLATELET ESTIMATE INCREASED
[2020-06-12] MEDS: MICAFUNGIN 150 MG in SODIUM CHLORIDE 0.9% 100 ML IV SCH (18:33)
[2020-06-12] MEDS: TRAMADOL 50MG TABLET PO PRN (20:18)
[2020-06-12] MEDS: METRONIDAZOLE 500 MG PREMIX 100 ML IV SCH (21:22)
[2020-06-12] MEDS: TOTAL PARENTERAL NUTRITION 1,500 ML IV SCH (21:24)
[2020-06-13] VITALS (14 sets, daily range): BP systolic 120–150; BP diastolic 75–101
[2020-06-13] MEDS: METOCLOPRAMIDE HCL 10MG/2ML VIAL IV SCH ×4 (00:12→17:32)
[2020-06-13] MEDS: MORPHINE SULFATE 2 MG/ML CPJ (NOT FOR IM USE) IV PRN (00:12)
[2020-06-13] MEDS: DILTIAZEM HCL 60MG TABLET PO SCH ×4 (00:13→17:32)
[2020-06-13] MEDS: IPRATROPIUM BROMIDE (0.02%) 0.5MG/2.5ML NEB HHN SCH ×4 (01:12→21:07)
[2020-06-13] MEDS: HYDROCODONE/ACETAMINOPHEN 5/325MG TABLET PO PRN ×2 (04:50→11:41)
[2020-06-13] MEDS: METRONIDAZOLE 500 MG PREMIX 100 ML IV SCH ×3 (05:30→21:28)
[2020-06-13] MEDS: GABAPENTIN 100MG CAPSULE PO SCH ×3 (05:31→21:27)
[2020-06-13] MEDS: BLOOD SUGAR DIAGNOSTIC STRIP TEST SCH ×4 (05:31→17:33)
[2020-06-13] MEDS: INSULIN LISPRO 100 UNITS/ML SUBCUT SCH ×4 (05:54→17:32)
[2020-06-13 06:58] LABS: CHLORIDE 102 mEq/L (98-107)
[2020-06-13 07:02] LABS: HEMATOCRIT. 29.5 % (36.0-48.0); HEMOGLOBIN. 9.7 g/dL (12.0-16.0); MEAN CORPUSCULAR HEMOGLOBIN 29.8 pg (28.0-32.0); MEAN CORPUSCULAR VOLUME 90.4 fL (81.0-99.0); MEAN PLATELET VOLUME 9.6 fl (7.4-10.4); PLATELET 599 x1000/uL (130-400); RED BLOOD CELL COUNT 3.26 mill/uL (4.2-5.4); RED CELL DISTRIBUTION WIDTH 15.9 % (11.6-14.6)
[2020-06-13] MEDS: ENOXAPARIN 30MG/0.3ML SYR SUBCUT SCH ×2 (09:00→21:28)
[2020-06-13] MEDS: HYDROXYCHLOROQUINE SULFATE 200MG TABLET PO SCH ×2 (09:00→17:32)
[2020-06-13] MEDS: BISACODYL 10MG SUPP PR SCH ×2 (09:00→21:28)
[2020-06-13] MEDS: HYDRALAZINE HCL 25MG TABLET PO SCH ×2 (09:00→21:26)
[2020-06-13] MEDS: GUAIFENESIN 600MG ER TABLET PO SCH ×2 (09:00→21:27)
[2020-06-13] MEDS: METOPROLOL TARTRATE 50MG TABLET PO SCH ×2 (09:01→21:27)
[2020-06-13] MEDS: FAMOTIDINE 20MG/2ML VIAL IV SCH ×2 (09:01→21:20)
[2020-06-13] MEDS: TRAMADOL 50MG TABLET PO PRN ×2 (09:01→15:39)
[2020-06-13] MEDS: VANCOMYCIN HCL 1000 MG/20 ML ORAL PO SCH ×3 (09:02→20:55)
[2020-06-13 10:40] LABS: PLATELET ESTIMATE MARKEDLY INCREASED
[2020-06-13] MEDS: HYDROMORPHONE HCL/PF 2MG/ML CPJ IV PRN ×2 (14:26→23:21)
[2020-06-13] MEDS ORDERED: FUROSEMIDE 20MG/2ML VIAL IVP NR (18:00)
[2020-06-13] MEDS: MICAFUNGIN 150 MG in SODIUM CHLORIDE 0.9% 100 ML IV SCH (18:34)
[2020-06-13] MEDS: TOTAL PARENTERAL NUTRITION 1,500 ML IV SCH (21:11)
[2020-06-14] VITALS (18 sets, daily range): BP systolic 128–168; BP diastolic 70–129
[2020-06-14] MEDS: METOCLOPRAMIDE HCL 10MG/2ML VIAL IV SCH ×5 (00:32→23:26)
[2020-06-14] MEDS: DILTIAZEM HCL 60MG TABLET PO SCH ×4 (00:33→18:00)
[2020-06-14] MEDS: BLOOD SUGAR DIAGNOSTIC STRIP TEST SCH ×5 (00:35→23:24)
[2020-06-14] MEDS: INSULIN LISPRO 100 UNITS/ML SUBCUT SCH ×5 (00:53→23:25)
[2020-06-14] MEDS: IPRATROPIUM BROMIDE (0.02%) 0.5MG/2.5ML NEB HHN SCH ×4 (02:09→20:10)
[2020-06-14] MEDS: VANCOMYCIN HCL 1000 MG/20 ML ORAL PO SCH ×3 (02:12→14:10)
[2020-06-14] MEDS: TRAMADOL 50MG TABLET PO PRN ×2 (02:12→09:38)
[2020-06-14] MEDS: METRONIDAZOLE 500 MG PREMIX 100 ML IV SCH ×3 (05:23→23:13)
[2020-06-14] MEDS: GABAPENTIN 100MG CAPSULE PO SCH ×3 (05:23→22:00)
[2020-06-14] MEDS: HYDROMORPHONE HCL/PF 2MG/ML CPJ IV PRN ×2 (05:49→22:58)
[2020-06-14 06:52] LABS: BASOPHILS % 0.6 % (0.0-2.0); EOSINOPHILS % 0.7 % (0.0-5.0); HEMATOCRIT. 28.9 % (36.0-48.0); HEMOGLOBIN. 9.7 g/dL (12.0-16.0); LYMPHOCYTES % 7.6 % (20.0-50.0); MEAN CORPUSCULAR HEMOGLOBIN 30.2 pg (28.0-32.0); MEAN CORPUSCULAR VOLUME 89.4 fL (81.0-99.0); MEAN PLATELET VOLUME 9.2 fl (7.4-10.4); MONOCYTES % 10.8 % (2.0-8.0); NEUTROPHILS % 80.3 % (40.0-76.0); PLATELET 592 x1000/uL (130-400); RED BLOOD CELL COUNT 3.23 mill/uL (4.2-5.4); RED CELL DISTRIBUTION WIDTH 15.8 % (11.6-14.6)
[2020-06-14 06:59] LABS: CHLORIDE 100 mEq/L (98-107)
[2020-06-14] MEDS: FAMOTIDINE 20MG/2ML VIAL IV SCH ×2 (09:29→21:45)
[2020-06-14] MEDS: METOPROLOL TARTRATE 50MG TABLET PO SCH ×2 (09:30→21:00)
[2020-06-14] MEDS: HYDRALAZINE HCL 25MG TABLET PO SCH ×2 (09:30→21:00)
[2020-06-14] MEDS: HYDROXYCHLOROQUINE SULFATE 200MG TABLET PO SCH ×2 (09:30→17:00)
[2020-06-14] MEDS: GUAIFENESIN 600MG ER TABLET PO SCH ×2 (09:30→21:00)
[2020-06-14] MEDS: ENOXAPARIN 30MG/0.3ML SYR SUBCUT SCH ×2 (09:31→21:00)
[2020-06-14] MEDS: BISACODYL 10MG SUPP PR SCH ×2 (09:38→21:00)
[2020-06-14] MEDS ORDERED: LIDOCAINE HCL 1% 20ML VIAL (Pyxis) INJ ONE (14:45)
[2020-06-14] MEDS ORDERED: BACITRACIN 50,000 UNITS/VIAL ONE ×2 (14:45→14:46)
[2020-06-14] MEDS ORDERED: BUPIVACAINE HCL/PF 0.5% (5MG/ML) 10ML ONE (14:45)
[2020-06-14] MEDS ORDERED: MIDAZOLAM HCL 5 MG/5 ML VIAL ONE (15:36)
[2020-06-14] MEDS ORDERED: HYDROMORPHONE HCL/PF 2MG/ML (OR) ONE (15:37)
[2020-06-14] MEDS ORDERED: LABETALOL 5MG/ML SYR 20 MG/4 ML SYRINGE IV PRN (16:30)
[2020-06-14] MEDS ORDERED: HYDROMORPHONE HCL/PF 2MG/ML CPJ IV PRN (16:30)
[2020-06-14] MEDS ORDERED: ONDANSETRON HCL 4MG/2ML INJ IV PRN (16:30)
[2020-06-14] MEDS ORDERED: MEPERIDINE HCL/PF 25MG/ML CPJ IV PRN (16:30)
[2020-06-14] MEDS: MICAFUNGIN 150 MG in SODIUM CHLORIDE 0.9% 100 ML IV SCH (21:46)
[2020-06-14] MEDS: TOTAL PARENTERAL NUTRITION 1,500 ML IV SCH (21:50)
[2020-06-15] VITALS (12 sets, daily range): BP systolic 106–167; BP diastolic 71–102
[2020-06-15] MEDS: IPRATROPIUM BROMIDE (0.02%) 0.5MG/2.5ML NEB HHN SCH ×4 (01:52→20:17)
[2020-06-15] MEDS: HYDROMORPHONE HCL/PF 2MG/ML CPJ IV PRN ×4 (03:35→20:34)
[2020-06-15] MEDS: METRONIDAZOLE 500 MG PREMIX 100 ML IV SCH ×3 (05:11→23:25)
[2020-06-15] MEDS: METOCLOPRAMIDE HCL 10MG/2ML VIAL IV SCH ×3 (05:12→17:11)
[2020-06-15] MEDS: BLOOD SUGAR DIAGNOSTIC STRIP TEST SCH ×3 (05:32→17:12)
[2020-06-15] MEDS: DILTIAZEM HCL 60MG TABLET PO SCH ×4 (05:37→17:11)
[2020-06-15] MEDS: GABAPENTIN 100MG CAPSULE PO SCH ×3 (05:37→21:52)
[2020-06-15] MEDS: INSULIN LISPRO 100 UNITS/ML SUBCUT SCH ×3 (05:48→17:12)
[2020-06-15 06:15] LABS: BASOPHILS % 0.6 % (0.0-2.0); CHLORIDE 101 mEq/L (98-107); HEMATOCRIT. 28.9 % (36.0-48.0); HEMOGLOBIN. 9.6 g/dL (12.0-16.0); LYMPHOCYTES % 7.4 % (20.0-50.0); MEAN CORPUSCULAR HEMOGLOBIN 29.9 pg (28.0-32.0); MEAN CORPUSCULAR VOLUME 90.1 fL (81.0-99.0); MEAN PLATELET VOLUME 9.5 fl (7.4-10.4); MONOCYTES % 10.3 % (2.0-8.0); NEUTROPHILS % 80.7 % (40.0-76.0); PLATELET 530 x1000/uL (130-400); RED BLOOD CELL COUNT 3.21 mill/uL (4.2-5.4); RED CELL DISTRIBUTION WIDTH 16.2 % (11.6-14.6)
[2020-06-15] MEDS: BISACODYL 10MG SUPP PR SCH ×2 (09:00→21:51)
[2020-06-15] MEDS: FAMOTIDINE 20MG/2ML VIAL IV SCH ×2 (09:24→21:50)
[2020-06-15] MEDS: HYDROXYCHLOROQUINE SULFATE 200MG TABLET PO SCH ×2 (09:24→17:11)
[2020-06-15] MEDS: TRAMADOL 50MG TABLET PO PRN (09:25)
[2020-06-15] MEDS: GUAIFENESIN 600MG ER TABLET PO SCH ×2 (09:25→21:51)
[2020-06-15] MEDS: HYDRALAZINE HCL 25MG TABLET PO SCH (09:25)
[2020-06-15] MEDS: ENOXAPARIN 30MG/0.3ML SYR SUBCUT SCH ×2 (09:26→21:51)
[2020-06-15] MEDS: METOPROLOL TARTRATE 50MG TABLET PO SCH (09:44)
[2020-06-15] MEDS: MICAFUNGIN 150 MG in SODIUM CHLORIDE 0.9% 100 ML IV SCH (17:12)
[2020-06-15] MEDS: HYDROCODONE/ACETAMINOPHEN 10/325MG TABLET PO PRN (17:21)
[2020-06-15] MEDS: FAT EMULSIONS 500 ML IV SCH (21:42)
[2020-06-15] MEDS: TOTAL PARENTERAL NUTRITION 1,500 ML IV SCH (21:49)
[2020-06-15] MEDS: HYDRALAZINE HCL 50MG TABLET PO SCH (21:50)
[2020-06-15] MEDS: METOPROLOL TARTRATE 100MG TABLET PO SCH (21:51)
[2020-06-16] VITALS (12 sets, daily range): BP systolic 119–152; BP diastolic 62–103
[2020-06-16] MEDS: BLOOD SUGAR DIAGNOSTIC STRIP TEST SCH ×4 (00:49→17:38)
[2020-06-16] MEDS: METOCLOPRAMIDE HCL 10MG/2ML VIAL IV SCH ×4 (00:50→17:45)
[2020-06-16] MEDS: DILTIAZEM HCL 60MG TABLET PO SCH ×4 (00:52→17:45)
[2020-06-16] MEDS: HYDROMORPHONE HCL/PF 2MG/ML CPJ IV PRN ×4 (01:11→21:00)
[2020-06-16] MEDS: IPRATROPIUM BROMIDE (0.02%) 0.5MG/2.5ML NEB HHN SCH ×4 (01:20→21:27)
[2020-06-16] MEDS: INSULIN LISPRO 100 UNITS/ML SUBCUT SCH ×4 (06:07→17:38)
[2020-06-16] MEDS: METRONIDAZOLE 500 MG PREMIX 100 ML IV SCH ×3 (06:08→21:00)
[2020-06-16] MEDS: GABAPENTIN 100MG CAPSULE PO SCH ×3 (06:08→21:00)
[2020-06-16 06:16] LABS: BASOPHILS % 0.5 % (0.0-2.0); EOSINOPHILS % 1.1 % (0.0-5.0); HEMATOCRIT. 28.1 % (36.0-48.0); HEMOGLOBIN. 9.4 g/dL (12.0-16.0); LYMPHOCYTES % 9.6 % (20.0-50.0); MEAN CORPUSCULAR VOLUME 89.3 fL (81.0-99.0); MEAN PLATELET VOLUME 9.6 fl (7.4-10.4); MONOCYTES % 9.1 % (2.0-8.0); NEUTROPHILS % 79.7 % (40.0-76.0); PLATELET 475 x1000/uL (130-400); RED BLOOD CELL COUNT 3.15 mill/uL (4.2-5.4); RED CELL DISTRIBUTION WIDTH 15.5 % (11.6-14.6)
[2020-06-16 06:43] LABS: CHLORIDE 101 mEq/L (98-107)
[2020-06-16] MEDS: ENOXAPARIN 30MG/0.3ML SYR SUBCUT SCH ×2 (08:56→20:40)
[2020-06-16] MEDS: FAMOTIDINE 20MG/2ML VIAL IV SCH ×2 (08:57→20:39)
[2020-06-16] MEDS: HYDROXYCHLOROQUINE SULFATE 200MG TABLET PO SCH ×2 (08:58→17:45)
[2020-06-16] MEDS: GUAIFENESIN 600MG ER TABLET PO SCH ×2 (08:58→20:40)
[2020-06-16] MEDS: HYDRALAZINE HCL 50MG TABLET PO SCH ×2 (08:58→20:40)
[2020-06-16] MEDS: METOPROLOL TARTRATE 100MG TABLET PO SCH ×2 (08:59→20:39)
[2020-06-16] MEDS: BISACODYL 10MG SUPP PR SCH ×3 (08:59→21:00)
[2020-06-16] MEDS: ACETAMINOPHEN 325MG TABLET PO PRN (09:17)
[2020-06-16] MEDS: HYDROCODONE/ACETAMINOPHEN 10/325MG TABLET PO PRN (12:13)
[2020-06-16] MEDS: DIPHENHYDRAMINE 25MG CAPSULE PO PRN (20:40)
[2020-06-16] MEDS: TOTAL PARENTERAL NUTRITION 1,500 ML IV SCH (20:46)
[2020-06-17] VITALS (12 sets, daily range): BP systolic 108–157; BP diastolic 71–95
[2020-06-17] MEDS: METOCLOPRAMIDE HCL 10MG/2ML VIAL IV SCH ×2 (00:12→05:21)
[2020-06-17] MEDS: DILTIAZEM HCL 60MG TABLET PO SCH ×5 (00:12→23:58)
[2020-06-17] MEDS: BLOOD SUGAR DIAGNOSTIC STRIP TEST SCH ×4 (00:30→16:53)
[2020-06-17] MEDS: IPRATROPIUM BROMIDE (0.02%) 0.5MG/2.5ML NEB HHN SCH ×4 (02:09→20:56)
[2020-06-17] MEDS: DIPHENHYDRAMINE 25MG CAPSULE PO PRN (05:14)
[2020-06-17] MEDS: METRONIDAZOLE 500 MG PREMIX 100 ML IV SCH ×3 (05:21→22:44)
[2020-06-17] MEDS: HYDROMORPHONE HCL/PF 2MG/ML CPJ IV PRN ×3 (05:21→20:30)
[2020-06-17] MEDS: GABAPENTIN 100MG CAPSULE PO SCH ×3 (05:23→22:43)
[2020-06-17] MEDS: INSULIN LISPRO 100 UNITS/ML SUBCUT SCH ×4 (06:00→16:56)
[2020-06-17 06:19] LABS: BASOPHILS % 0.7 % (0.0-2.0); HEMATOCRIT. 27.9 % (36.0-48.0); HEMOGLOBIN. 9.3 g/dL (12.0-16.0); LYMPHOCYTES % 8.8 % (20.0-50.0); MEAN CORPUSCULAR VOLUME 89.8 fL (81.0-99.0); MEAN PLATELET VOLUME 9.5 fl (7.4-10.4); MONOCYTES % 9.5 % (2.0-8.0); PLATELET 422 x1000/uL (130-400); RED BLOOD CELL COUNT 3.11 mill/uL (4.2-5.4); RED CELL DISTRIBUTION WIDTH 15.7 % (11.6-14.6)
[2020-06-17 06:34] LABS: CHLORIDE 99 mEq/L (98-107)
[2020-06-17] MEDS: HYDROXYCHLOROQUINE SULFATE 200MG TABLET PO SCH ×2 (08:34→16:52)
[2020-06-17] MEDS: BISACODYL 10MG SUPP PR SCH ×2 (08:34→20:28)
[2020-06-17] MEDS: HYDRALAZINE HCL 50MG TABLET PO SCH ×2 (08:34→20:29)
[2020-06-17] MEDS: FAMOTIDINE 20MG/2ML VIAL IV SCH ×2 (08:35→20:29)
[2020-06-17] MEDS: METOPROLOL TARTRATE 100MG TABLET PO SCH ×2 (08:35→20:29)
[2020-06-17] MEDS: ENOXAPARIN 30MG/0.3ML SYR SUBCUT SCH ×2 (08:35→20:27)
[2020-06-17] MEDS: GUAIFENESIN 600MG ER TABLET PO SCH ×2 (08:35→20:28)
[2020-06-17] MEDS: HYDROCODONE/ACETAMINOPHEN 10/325MG TABLET PO PRN (18:03)
[2020-06-18] VITALS (12 sets, daily range): BP systolic 105–150; BP diastolic 66–97
[2020-06-18] MEDS: BLOOD SUGAR DIAGNOSTIC STRIP TEST SCH ×4 (00:01→17:01)
[2020-06-18] MEDS: HYDROMORPHONE HCL/PF 2MG/ML CPJ IV PRN ×4 (00:44→19:15)
[2020-06-18] MEDS: IPRATROPIUM BROMIDE (0.02%) 0.5MG/2.5ML NEB HHN SCH ×4 (02:15→21:39)
[2020-06-18] MEDS: HYDROCODONE/ACETAMINOPHEN 10/325MG TABLET PO PRN (02:45)
[2020-06-18] MEDS: DIPHENHYDRAMINE 25MG CAPSULE PO PRN (02:51)
[2020-06-18] MEDS: DILTIAZEM HCL 60MG TABLET PO SCH ×4 (05:53→17:00)
[2020-06-18] MEDS: GABAPENTIN 100MG CAPSULE PO SCH ×3 (05:53→22:42)
[2020-06-18] MEDS: INSULIN LISPRO 100 UNITS/ML SUBCUT SCH ×4 (06:00→17:00)
[2020-06-18 08:53] LABS: HEMATOCRIT. 28.8 % (36.0-48.0); HEMOGLOBIN. 9.6 g/dL (12.0-16.0); MEAN CORPUSCULAR HEMOGLOBIN 30.2 pg (28.0-32.0); MEAN CORPUSCULAR VOLUME 90.2 fL (81.0-99.0); MEAN PLATELET VOLUME 9.6 fl (7.4-10.4); PLATELET 403 x1000/uL (130-400); RED BLOOD CELL COUNT 3.19 mill/uL (4.2-5.4); RED CELL DISTRIBUTION WIDTH 15.8 % (11.6-14.6)
[2020-06-18] MEDS: FAMOTIDINE 20MG/2ML VIAL IV SCH ×2 (08:58→22:42)
[2020-06-18] MEDS: BISACODYL 10MG SUPP PR SCH (08:59)
[2020-06-18] MEDS: ENOXAPARIN 30MG/0.3ML SYR SUBCUT SCH ×2 (08:59→22:42)
[2020-06-18] MEDS: GUAIFENESIN 600MG ER TABLET PO SCH ×2 (08:59→22:42)
[2020-06-18] MEDS: HYDROXYCHLOROQUINE SULFATE 200MG TABLET PO SCH ×2 (08:59→17:00)
[2020-06-18] MEDS: METOPROLOL TARTRATE 100MG TABLET PO SCH ×2 (08:59→22:43)
[2020-06-18] MEDS: HYDRALAZINE HCL 50MG TABLET PO SCH ×2 (08:59→22:43)
[2020-06-18 09:00] LABS: CHLORIDE 100 mEq/L (98-107)
[2020-06-18 14:13] LABS: PLATELET ESTIMATE SLIGHTLY INCREASED
[2020-06-19] VITALS (11 sets, daily range): BP systolic 103–142; BP diastolic 66–88
[2020-06-19] MEDS: BLOOD SUGAR DIAGNOSTIC STRIP TEST SCH ×5 (00:17→23:51)
[2020-06-19] MEDS: METRONIDAZOLE 500 MG PREMIX 100 ML IV SCH ×4 (00:17→23:38)
[2020-06-19] MEDS: BISACODYL 10MG SUPP PR SCH ×3 (00:17→21:00)
[2020-06-19] MEDS: DILTIAZEM HCL 60MG TABLET PO SCH ×5 (00:19→23:50)
[2020-06-19] MEDS: HYDROCODONE/ACETAMINOPHEN 10/325MG TABLET PO PRN ×2 (00:33→05:33)
[2020-06-19] MEDS: HYDROMORPHONE HCL/PF 2MG/ML CPJ IV PRN ×4 (02:40→23:30)
[2020-06-19] MEDS: IPRATROPIUM BROMIDE (0.02%) 0.5MG/2.5ML NEB HHN SCH ×4 (02:52→19:47)
[2020-06-19] MEDS: GABAPENTIN 100MG CAPSULE PO SCH ×3 (05:32→21:06)
[2020-06-19] MEDS: INSULIN LISPRO 100 UNITS/ML SUBCUT SCH ×5 (06:00→23:51)
[2020-06-19 07:20] LABS: BASOPHILS % 0.5 % (0.0-2.0); HEMATOCRIT. 28.6 % (36.0-48.0); HEMOGLOBIN. 9.5 g/dL (12.0-16.0); LYMPHOCYTES % 12.2 % (20.0-50.0); MEAN CORPUSCULAR VOLUME 90.5 fL (81.0-99.0); MEAN PLATELET VOLUME 9.5 fl (7.4-10.4); MONOCYTES % 9.3 % (2.0-8.0); PLATELET 396 x1000/uL (130-400); RED BLOOD CELL COUNT 3.16 mill/uL (4.2-5.4); RED CELL DISTRIBUTION WIDTH 15.6 % (11.6-14.6)
[2020-06-19 07:42] LABS: CHLORIDE 99 mEq/L (98-107)
[2020-06-19] MEDS: GUAIFENESIN 600MG ER TABLET PO SCH ×2 (08:56→21:06)
[2020-06-19] MEDS: HYDROXYCHLOROQUINE SULFATE 200MG TABLET PO SCH ×2 (08:56→18:14)
[2020-06-19] MEDS: FAMOTIDINE 20MG/2ML VIAL IV SCH ×2 (08:56→21:06)
[2020-06-19] MEDS: ENOXAPARIN 30MG/0.3ML SYR SUBCUT SCH ×2 (08:57→21:05)
[2020-06-19] MEDS: METOPROLOL TARTRATE 100MG TABLET PO SCH ×2 (08:58→21:06)
[2020-06-19] MEDS: HYDRALAZINE HCL 50MG TABLET PO SCH ×2 (08:59→21:00)
[2020-06-19] MEDS ORDERED: BUPIVACAINE HCL/PF 0.5% (5MG/ML) 10ML ONE (09:41)
[2020-06-19] MEDS ORDERED: LIDOCAINE HCL 1% 20ML VIAL (Pyxis) INJ ONE (09:41)
[2020-06-19] MEDS ORDERED: BACITRACIN 50,000 UNITS/VIAL ONE (09:41)
[2020-06-19] MEDS ORDERED: SODIUM CHLORIDE 0.9% INJ 10ML FLUSH IVF ONE (09:41)
[2020-06-19] MEDS ORDERED: MIDAZOLAM HCL 2 MG/2 ML VIAL ONE (10:50)
[2020-06-19] MEDS ORDERED: PROPOFOL 200MG/20ML VIAL IV ONE (10:50)
[2020-06-19] MEDS ORDERED: FENTANYL CITRATE/PF 50MCG/ML 2ML VIAL ONE (10:50)
[2020-06-19] MEDS ORDERED: TRAMADOL 50MG TABLET PO PRN (11:15)
[2020-06-19] MEDS: ONDANSETRON HCL 4MG/2ML INJ IV PRN (18:15)
[2020-06-19] MEDS: DIPHENHYDRAMINE 25MG CAPSULE PO PRN (23:38)
[2020-06-20] VITALS (12 sets, daily range): BP systolic 110–159; BP diastolic 53–81
[2020-06-20] MEDS: IPRATROPIUM/ALBUTEROL 0.5-3(2.5)MG/3ML NEB HHN PRN (02:58)
[2020-06-20] MEDS: IPRATROPIUM BROMIDE (0.02%) 0.5MG/2.5ML NEB HHN SCH ×4 (03:06→19:59)
[2020-06-20] MEDS: HYDROMORPHONE HCL/PF 2MG/ML CPJ IV PRN ×4 (05:34→22:06)
[2020-06-20] MEDS: INSULIN LISPRO 100 UNITS/ML SUBCUT SCH ×3 (06:00→17:30)
[2020-06-20] MEDS: GABAPENTIN 100MG CAPSULE PO SCH ×3 (06:09→23:00)
[2020-06-20] MEDS: BLOOD SUGAR DIAGNOSTIC STRIP TEST SCH ×3 (06:09→17:30)
[2020-06-20] MEDS: DILTIAZEM HCL 60MG TABLET PO SCH ×3 (06:09→17:06)
[2020-06-20 06:22] LABS: BASOPHILS % 0.8 % (0.0-2.0); EOSINOPHILS % 0.8 % (0.0-5.0); HEMATOCRIT. 27.3 % (36.0-48.0); LYMPHOCYTES % 9.6 % (20.0-50.0); MEAN CORPUSCULAR HEMOGLOBIN 29.7 pg (28.0-32.0); MEAN CORPUSCULAR VOLUME 90.1 fL (81.0-99.0); MEAN PLATELET VOLUME 9.2 fl (7.4-10.4); MONOCYTES % 10.1 % (2.0-8.0); NEUTROPHILS % 78.7 % (40.0-76.0); PLATELET 358 x1000/uL (130-400); RED BLOOD CELL COUNT 3.03 mill/uL (4.2-5.4); RED CELL DISTRIBUTION WIDTH 15.4 % (11.6-14.6)
[2020-06-20 06:29] LABS: CHLORIDE 101 mEq/L (98-107)
[2020-06-20] MEDS: GUAIFENESIN 600MG ER TABLET PO SCH ×2 (08:08→22:58)
[2020-06-20] MEDS: BISACODYL 10MG SUPP PR SCH ×2 (08:08→22:59)
[2020-06-20] MEDS: FAMOTIDINE 20MG/2ML VIAL IV SCH ×2 (08:08→22:55)
[2020-06-20] MEDS: METRONIDAZOLE 500 MG PREMIX 100 ML IV SCH ×3 (08:08→23:00)
[2020-06-20] MEDS: HYDROXYCHLOROQUINE SULFATE 200MG TABLET PO SCH ×2 (08:09→17:05)
[2020-06-20] MEDS: METOPROLOL TARTRATE 100MG TABLET PO SCH ×2 (08:09→22:58)
[2020-06-20] MEDS: HYDRALAZINE HCL 50MG TABLET PO SCH ×2 (08:09→22:57)
[2020-06-20] MEDS: ENOXAPARIN 30MG/0.3ML SYR SUBCUT SCH ×2 (08:10→23:00)
[2020-06-20] MEDS: HYDROCODONE/ACETAMINOPHEN 10/325MG TABLET PO PRN (11:05)
[2020-06-21] VITALS (11 sets, daily range): BP systolic 102–129; BP diastolic 56–89
[2020-06-21] MEDS: BLOOD SUGAR DIAGNOSTIC STRIP TEST SCH ×4 (00:40→17:45)
[2020-06-21] MEDS: DILTIAZEM HCL 60MG TABLET PO SCH ×4 (00:50→18:09)
[2020-06-21] MEDS: IPRATROPIUM BROMIDE (0.02%) 0.5MG/2.5ML NEB HHN SCH ×3 (01:24→14:35)
[2020-06-21] MEDS: HYDROMORPHONE HCL/PF 2MG/ML CPJ IV PRN ×3 (02:45→13:03)
[2020-06-21] MEDS: INSULIN LISPRO 100 UNITS/ML SUBCUT SCH ×4 (06:00→17:45)
[2020-06-21] MEDS: GABAPENTIN 100MG CAPSULE PO SCH ×2 (06:19→13:08)
[2020-06-21 06:50] LABS: BASOPHILS % 0.9 % (0.0-2.0); EOSINOPHILS % 1.4 % (0.0-5.0); HEMATOCRIT. 28.8 % (36.0-48.0); HEMOGLOBIN. 9.5 g/dL (12.0-16.0); LYMPHOCYTES % 10.6 % (20.0-50.0); MEAN CORPUSCULAR HEMOGLOBIN 29.9 pg (28.0-32.0); MEAN CORPUSCULAR VOLUME 90.9 fL (81.0-99.0); MEAN PLATELET VOLUME 9.9 fl (7.4-10.4); MONOCYTES % 9.3 % (2.0-8.0); NEUTROPHILS % 77.8 % (40.0-76.0); PLATELET 352 x1000/uL (130-400); RED BLOOD CELL COUNT 3.17 mill/uL (4.2-5.4); RED CELL DISTRIBUTION WIDTH 16.3 % (11.6-14.6)
[2020-06-21 07:17] LABS: CHLORIDE 101 mEq/L (98-107)
[2020-06-21] MEDS: METRONIDAZOLE 500 MG PREMIX 100 ML IV SCH ×2 (08:43→16:34)
[2020-06-21] MEDS: FAMOTIDINE 20MG/2ML VIAL IV SCH (08:53)
[2020-06-21] MEDS: ENOXAPARIN 30MG/0.3ML SYR SUBCUT SCH (08:56)
[2020-06-21] MEDS: METOPROLOL TARTRATE 100MG TABLET PO SCH (08:57)
[2020-06-21] MEDS: HYDROXYCHLOROQUINE SULFATE 200MG TABLET PO SCH ×2 (08:57→18:09)
[2020-06-21] MEDS: HYDRALAZINE HCL 50MG TABLET PO SCH (08:57)
[2020-06-21] MEDS: GUAIFENESIN 600MG ER TABLET PO SCH (08:57)
[2020-06-21] MEDS: BISACODYL 10MG SUPP PR SCH (09:00)
== END 2020-06-21 18:45 | DRG 710 ==
LOC: ER 03:01 → 8WST 04:37 → EDBEDREQTM 04:44 → EDBEDREQ 04:44 → ENRESERV 06:57 → CVICU 06-02 23:45 → 3WST 06-05 10:27
PROVIDERS: ADMIT Internal Medicine; ATTEND Internal Medicine
PROC: 0D1N0Z4 Bypass Sigmoid Colon to Cutaneous, Open Approach (ICD-10-PCS; principal; 2020-06-02)
PROC: 0DT80ZZ Resection of Small Intestine, Open Approach (ICD-10-PCS; 2020-06-02)
PROC: 0UT50ZZ Resection of Right Fallopian Tube, Open Approach (ICD-10-PCS; 2020-06-02)
PROC: 5A1945Z Respiratory Ventilation, 24-96 Consecutive Hours (ICD-10-PCS; 2020-06-02)
PROC: 0DBN0ZZ Excision of Sigmoid Colon, Open Approach (ICD-10-PCS; 2020-06-02)
PROC: 0DN80ZZ Release Small Intestine, Open Approach (ICD-10-PCS; 2020-06-02)
PROC: 0W9J0ZZ Drainage of Pelvic Cavity, Open Approach (ICD-10-PCS; 2020-06-02)
PROC: 02HV33Z Insertion of Infusion Device into Superior Vena Cava, Percutaneous Approach (ICD-10-PCS; 2020-06-03)
PROC: B518ZZA Fluoroscopy of Superior Vena Cava, Guidance (ICD-10-PCS; 2020-06-03)
PROC: B548ZZA Ultrasonography of Superior Vena Cava, Guidance (ICD-10-PCS; 2020-06-03)
PROC: 0W9F0ZZ Drainage of Abdominal Wall, Open Approach (ICD-10-PCS; 2020-06-06)
PROC: 0JD80ZZ Extraction of Abdomen Subcutaneous Tissue and Fascia, Open Approach (ICD-10-PCS; 2020-06-06)
PROC: 0JB80ZZ Excision of Abdomen Subcutaneous Tissue and Fascia, Open Approach (ICD-10-PCS; 2020-06-14)
PROC: 0JQ80ZZ Repair Abdomen Subcutaneous Tissue and Fascia, Open Approach (ICD-10-PCS; 2020-06-19)
DX: A41.51 Sepsis due to Escherichia coli [E. coli] (principal); K65.1 Peritoneal abscess; E87.2 Acidosis; E87.6 Hypokalemia; J96.00 Acute respiratory failure, unspecified whether with hypoxia or hypercapnia; N73.9 Female pelvic inflammatory disease, unspecified; E11.9 Type 2 diabetes mellitus without complications; I27.20 Pulmonary hypertension, unspecified; I47.1 Supraventricular tachycardia; K80.42 Calculus of bile duct with acute cholecystitis without obstruction; M32.9 Systemic lupus erythematosus, unspecified; K82.8 Other specified diseases of gallbladder; K76.0 Fatty (change of) liver, not elsewhere classified; K66.0 Peritoneal adhesions (postprocedural) (postinfection); J45.20 Mild intermittent asthma, uncomplicated; J98.11 Atelectasis; I10 Essential (primary) hypertension; E66.01 Morbid (severe) obesity due to excess calories; L89.896 Pressure-induced deep tissue damage of other site; T81.31XA Disruption of external operation (surgical) wound, not elsewhere classified, initial encounter; D72.821 Monocytosis (symptomatic); Z20.828 Contact with and (suspected) exposure to other viral communicable diseases; J90 Pleural effusion, not elsewhere classified; L76.32 Postprocedural hematoma of skin and subcutaneous tissue following other procedure; Y83.3 Surgical operation with formation of external stoma as the cause of abnormal reaction of the patient, or of later complication, without mention of misadventure at the time of the procedure; Y92.230 Patient room in hospital as the place of occurrence of the external cause; K56.7 Ileus, unspecified; K57.20 Diverticulitis of large intestine with perforation and abscess without bleeding; K91.89 Other postprocedural complications and disorders of digestive system; Z78.1 Physical restraint status; Z68.41 Body mass index [BMI] 40.0-44.9, adult; Z82.49 Family history of ischemic heart disease and other diseases of the circulatory system; Z88.0 Allergy status to penicillin; Z88.8 Allergy status to other drugs, medicaments and biological substances; Z98.891 History of uterine scar from previous surgery; Z79.84 Long term (current) use of oral hypoglycemic drugs; Z79.899 Other long term (current) drug therapy; Z68.36 Body mass index [BMI] 36.0-36.9, adult
CPT/HCPCS: 36415; 36573; 36600; 71045; 74176; 74177; 76705; 78227; 80048; 80053; 80076; 80320; 81003; 82040; 82375; 82805; 82962; 83036; 83605; 83735; 83880; 84100; 84134; 84145; 84478; 84484; 84703; 85025; 85027; 87070; 87075; 87076; 87077; 87106; 87186; 87426; 88302; 88305; 93005; 93306; 94002; 94003; 94640; 97110; 97116; 97162; 97164; 97166; 97530; 97535; 99285; A9537; C1725; C9113; J1100; J1170; J1650; J1815; J1940; J1956; J2060; J2248; J2250; J2270; J2310; J2405; J2704; J2710; J2765; J3010; J3370; J3475; J3480; J3490; J7030; J7040; J7050; J7060; J7608; P9047; Q0163; Q9963; Q9967; G0480